=== PATIENT | female | born 1960 | race Caucasian/White ===

== ENCOUNTER 2018-02-04 10:43 | Emergency (ER) | payer SELFPAY ==
[2018-02-04] MEDS ORDERED: IPRATROPIUM/ALBUTEROL 0.5-2.5 MG/3 ML AMPUL NEB ONE (10:48)
[2018-02-04] MEDS ORDERED: NORMAL SALINE 1000 ML 1,000 ML IV ONE ×2 (11:00→14:04)
[2018-02-04 11:01] LABS: ABSOLUTE BASOPHILS # (AUTO) 0.1 10^3/uL (0.0-0.2); ABSOLUTE LYMPHOCYTES (AUTO) 1.4 10^3/uL (0.5-4.7); ABSOLUTE MONOCYTES (AUTO) 0.4 10^3/uL (0.1-1.4); ABSOLUTE NEUT (AUTO) 5.5 10^3/uL (1.7-8.2); BASOPHILS % (AUTO) 0.7 % (0-2); EOSINOPHILS % (AUTO) 0.1 % (0-6); HEMATOCRIT 45.2 % (36.0-47.0); HEMOGLOBIN 14.9 g/dL (12.0-15.5); LYMPHOCYTES % (AUTO) 18.9 % (13-45); MEAN CORPUSCULAR HEMOGLOBIN 29.2 pg (27.0-33.4); MEAN CORPUSCULAR VOLUME 89 fl (80-97); PLATELET COUNT 178 10^3/uL (150-450); RED CELL DISTRIBUTION WIDTH 15.5 % (11.5-14.0); SEGMENTED NEUTROPHILS % (AUTO) 74.3 % (42-78); TOTAL CELLS COUNTED % (AUTO) 100 %; WHITE BLOOD COUNT 7.4 10^3/uL (4.0-10.5)
[2018-02-04] MEDS ORDERED: BUMETANIDE INJ/PF 1 MG/4 ML SDV IV ONE (11:01)
--- NOTE | 2018-02-04 11:03 | ER Document Report ---
ED General - General Stated Complaint: TROUBLE BREATHING Time Seen by Provider: 02/04/18 11:00 Mode of Arrival: Medic Information source: Patient, Emergency Med Personnel, Outside Facility Records Notes: 57-year-old female with congestive heart failure, chronic pain presents via EMS from home in respiratory distress. Per EMS they were called by the patient's after she became unresponsive. Upon their arrival patient was cyanotic , hypoxic with an oxygen saturation of 72%. She was placed on BiPAP and oxygen saturation improved. Upon arrival patient is alert, awake and is able to answer questions although she does not off. She states that she has had chills , sweats for the last few days. She reports a nonproductive intermittent cough. He she does state that she was recently admitted to [facility] for heart failure. - Related Data Allergies/Adverse Reactions: No Known Allergies Allergy (Verified 02/04/18 13:12) Past Medical History - General Information source: Patient, Emergency Med Personnel, Outside Facility Records Cannot obtain history due to: Altered mental status - Social History Smoking Status: Current Every Day Smoker Cigarette use (# per day): Yes - 20 Frequency of alcohol use: None Drug Abuse: Prescription drugs Lives with: Spouse/Significant other Family History: Reviewed & Not Pertinent Patient has suicidal ideation: No Patient has homicidal ideation: No - Past Medical History Cardiac Medical History: Reports: Hx Congestive Heart Failure Physical Exam - Vital signs Vitals: Resp 31 H 02/04/18 10:46 - Notes Notes: PHYSICAL EXAMINATION: GENERAL: Ill-appearing, moderate distress HEAD: Atraumatic, normocephalic. EYES: Pupils equal round and reactive to light, extraocular movements intact, conjunctiva are normal. ENT: Nares patent, oropharynx clear without exudates. Dry mucous membranes. NECK: Normal range of motion, supple without lymphadenopathy LUNGS: Breath sounds clear to auscultation bilaterally and equal. Tachypnea, accessory muscle use, cyanosis. HEART: Tachycardic, regular rhythm, no murmurs. ABDOMEN: Soft, nontender, nondistended abdomen. No guarding, no rebound. No masses appreciated. Female : deferred Musculoskeletal: Normal range of motion, no pitting or edema. No cyanosis. NEUROLOGICAL: Cranial nerves grossly intact. Normal speech, Normal sensory, motor exams. AO x3 PSYCH: Somnolent but arousable. SKIN: Warm, Dry, normal turgor, no rashes or lesions noted. Course - Re-evaluation Re-evalutation: Laboratory 02/04/18 02/04/18 02/04/18 10:36 10:36 10:36 WBC 7.4 RBC 5.10 Hgb 14.9 Hct 45.2 MCV 89 MCH 29.2 MCHC 33.0 RDW 15.5 H Plt Count 178 Seg Neutrophils % 74.3 Lymphocytes % 18.9 Monocytes % 6.0 Eosinophils % 0.1 Basophils % 0.7 Absolute Neutrophils 5.5 Absolute Lymphocytes 1.4 Absolute Monocytes 0.4 Absolute Eosinophils 0.0 Absolute Basophils 0.1 PT 17.7 H INR 1.38 Carbonic Acid HCO3/H2CO3 Ratio ABG pH ABG pCO2 ABG pO2 ABG HCO3 ABG Total CO2 ABG O2 Saturation ABG Base Excess VBG pH VBG pCO2 VBG HCO3 VBG Base Excess FiO2 Sodium 141.4 Potassium 6.4 H* Chloride 99 Carbon Dioxide 30 Anion Gap 12 BUN 19 Creatinine 1.07 Est GFR ( Amer) > 60 Est GFR (Non-Af Amer) 53 L Glucose 137 H POC Glucose Lactic Acid Calcium 9.5 Total Bilirubin 2.9 H Direct Bilirubin 1.0 H Neonat Total Bilirubin Not Reportable Neonat Direct Bilirubin Not Reportable Neonat Indirect Bili Not Reportable AST 119 H ALT 83 H Alkaline Phosphatase 64 Creatine Kinase 74 CK-MB (CK-2) Troponin I NT-Pro-B Natriuret Pep Total Protein 7.4 Albumin 4.2 Urine Color Urine Appearance Urine pH Ur Specific Rock Urine Protein Urine Glucose (UA) Urine Ketones Urine Blood Urine Nitrite Urine Bilirubin Urine Urobilinogen Ur Leukocyte Esterase Urine WBC (Auto) Urine RBC (Auto) U Hyaline Cast (Auto) Squamous Epi Cells Auto Urine Mucus (Auto) Urine Ascorbic Acid Urine Opiates Screen Urine Methadone Screen Ur Barbiturates Screen Ur Phencyclidine Scrn Ur Amphetamines Screen U Benzodiazepines Scrn Urine Cocaine Screen U Marijuana (THC) Screen 02/04/18 02/04/18 02/04/18 10:36 10:36 11:16 WBC RBC Hgb Hct MCV MCH MCHC RDW Plt Count Seg Neutrophils % Lymphocytes % Monocytes % Eosinophils % Basophils % Absolute Neutrophils Absolute Lymphocytes Absolute Monocytes Absolute Eosinophils Absolute Basophils PT INR Carbonic Acid HCO3/H2CO3 Ratio ABG pH ABG pCO2 ABG pO2 ABG HCO3 ABG Total CO2 ABG O2 Saturation ABG Base Excess VBG pH VBG pCO2 VBG HCO3 VBG Base Excess FiO2 Sodium Potassium Chloride Carbon Dioxide Anion Gap BUN Creatinine Est GFR ( Amer) Est GFR (Non-Af Amer) Glucose POC Glucose Lactic Acid Calcium Total Bilirubin Direct Bilirubin Neonat Total Bilirubin Neonat Direct Bilirubin Neonat Indirect Bili AST ALT Alkaline Phosphatase Creatine Kinase CK-MB (CK-2) 2.12 Troponin I 0.066 NT-Pro-B Natriuret Pep 55760 H Total Protein Albumin Urine Color LOAF Urine Appearance SLIGHTLY-CLOUDY Urine pH 5.0 Ur Specific Rock 1.023 Urine Protein 100 H Urine Glucose (UA) NEGATIVE Urine Ketones NEGATIVE Urine Blood NEGATIVE Urine Nitrite NEGATIVE Urine Bilirubin NEGATIVE Urine Urobilinogen 4.0 H Ur Leukocyte Esterase NEGATIVE Urine WBC (Auto) 2 Urine RBC (Auto) 0 U Hyaline Cast (Auto) 20 Squamous Epi Cells Auto 2 Urine Mucus (Auto) MOD Urine Ascorbic Acid NEGATIVE Urine Opiates Screen Urine Methadone Screen Ur Barbiturates Screen Ur Phencyclidine Scrn Ur Amphetamines Screen U Benzodiazepines Scrn Urine Cocaine Screen U Marijuana (THC) Screen 02/04/18 02/04/18 02/04/18 11:16 11:45 12:09 WBC RBC Hgb Hct MCV MCH MCHC RDW Plt Count Seg Neutrophils % Lymphocytes % Monocytes % Eosinophils % Basophils % Absolute Neutrophils Absolute Lymphocytes Absolute Monocytes Absolute Eosinophils Absolute Basophils PT INR Carbonic Acid Cancelled HCO3/H2CO3 Ratio Cancelled ABG pH Cancelled ABG pCO2 Cancelled ABG pO2 Cancelled ABG HCO3 Cancelled ABG Total CO2 Cancelled ABG O2 Saturation Cancelled ABG Base Excess Cancelled VBG pH VBG pCO2 VBG HCO3 VBG Base Excess FiO2 Cancelled Sodium Potassium Chloride Carbon Dioxide Anion Gap BUN Creatinine Est GFR ( Amer) Est GFR (Non-Af Amer) Glucose POC Glucose Lactic Acid 3.2 H Calcium Total Bilirubin Direct Bilirubin Neonat Total Bilirubin Neonat Direct Bilirubin Neonat Indirect Bili AST ALT Alkaline Phosphatase Creatine Kinase CK-MB (CK-2) Troponin I NT-Pro-B Natriuret Pep Total Protein Albumin Urine Color Urine Appearance Urine pH Ur Specific Rock Urine Protein Urine Glucose (UA) Urine Ketones Urine Blood Urine Nitrite Urine Bilirubin Urine Urobilinogen Ur Leukocyte Esterase Urine WBC (Auto) Urine RBC (Auto) U Hyaline Cast (Auto) Squamous Epi Cells Auto Urine Mucus (Auto) Urine Ascorbic Acid Urine Opiates Screen NEGATIVE Urine Methadone Screen NEGATIVE Ur Barbiturates Screen NEGATIVE Ur Phencyclidine Scrn NEGATIVE Ur Amphetamines Screen U Benzodiazepines Scrn NEGATIVE Urine Cocaine Screen NEGATIVE U Marijuana (THC) Screen NEGATIVE 02/04/18 02/04/18 12:09 12:22 WBC RBC Hgb Hct MCV MCH MCHC RDW Plt Count Seg Neutrophils % Lymphocytes % Monocytes % Eosinophils % Basophils % Absolute Neutrophils Absolute Lymphocytes Absolute Monocytes Absolute Eosinophils Absolute Basophils PT INR Carbonic Acid HCO3/H2CO3 Ratio ABG pH ABG pCO2 ABG pO2 ABG HCO3 ABG Total CO2 ABG O2 Saturation ABG Base Excess VBG pH 7.25 L VBG pCO2 60.6 VBG HCO3 26.2 VBG Base Excess -2.2 FiO2 Sodium Potassium Chloride Carbon Dioxide Anion Gap BUN Creatinine Est GFR ( Amer) Est GFR (Non-Af Amer) Glucose POC Glucose 127 H Lactic Acid Calcium Total Bilirubin Direct Bilirubin Neonat Total Bilirubin Neonat Direct Bilirubin Neonat Indirect Bili AST ALT Alkaline Phosphatase Creatine Kinase CK-MB (CK-2) Troponin I NT-Pro-B Natriuret Pep Total Protein Albumin Urine Color Urine Appearance Urine pH Ur Specific Rock Urine Protein Urine Glucose (UA) Urine Ketones Urine Blood Urine Nitrite Urine Bilirubin Urine Urobilinogen Ur Leukocyte Esterase Urine WBC (Auto) Urine RBC (Auto) U Hyaline Cast (Auto) Squamous Epi Cells Auto Urine Mucus (Auto) Urine Ascorbic Acid Urine Opiates Screen Urine Methadone Screen Ur Barbiturates Screen Ur Phencyclidine Scrn Ur Amphetamines Screen U Benzodiazepines Scrn Urine Cocaine Screen U Marijuana (THC) Screen Chest X-Ray 02/04/18 10:44 IMPRESSION: HEART ENLARGED WITHOUT FAILURE. NO OTHER SIGNIFICANT RADIOGRAPHIC FINDING IN THE CHEST. Temp Pulse Resp BP Pulse Ox 22 H 123/103 H 100 02/04/18 13:01 02/04/18 13:01 02/04/18 13:01 02/04/18 11:02 Patient presented via EMS in respiratory distress on CPAP. EMS reported that they found the patient with an oxygen saturation of 68%. Bedside ultrasound performed and showed no pericardial effusion but did show poor contractility suspect EF less than 20. Patient reports recent admission to [facility]. 02/04/18 11:21 [facility] contacted for information regarding patient' s recent admission. They state that she was admitted for acute decompensated heart failure in November. Patient will be stabilized and transfer will be initiated. 02/04/18 11:[address] Ross metal bonding assembler on-call regarding concern for cardiogenic shock. Requesting advice regarding pressors. Dobutamine versus nor epi. He advises initiating nor epi first and then adding dobutamine if needed. 02/04/18 11:34 Patient becoming combative, agitated. Potassium found to be 6.4 and QTC is 537. Calcium, insulin, dextrose, albuterol were administered. 02/04/18 11:45 Patient's narcotic report reviewed and patient was receiving Percocet 10 mg 3 times daily and Ultram consistently. Questionable whether patient had an overdose which caused her to become hypoxic. 02/04/18 12:13 Transfer to [facility] initiated. 02/04/18 12:18 Unable to obtain consistent accurate BP but patient is alert awake and mentating normally, patient does become drowsy but she is easily aroused. Lovenox administered. Nor epi initiated. 02/04/18 13:00 Patient reevaluated. Vital signs stable. Received 2 phone calls from the transfer center at [facility]. The first time the case loader operator apologized and told me the clerical specialist said this was cardiac and once cardiology involved. I was set up to just talk to Dr. Winkler when I was told that the patient belongs to [facility]. Still awaiting callback. 02/04/18 13:[address] Ureña clerical specialist at [facility] who recommends intubation prior to transfer. Patient was intubated without complication. Brief episode of hypotension. Chest x-ray pending. 02/04/18 14:05 Chest x-ray reviewed. Tube appears to be in appropriate position. Flight crew has arrived. Vital signs stable. Patient's has been notified and is aware that patient will be transferred to [facility]. He states that he is on his way there now. 02/04/18 15:14 57-year-old female with history of congestive heart failure with an EF of 15-20 % per [facility] medical records, methamphetamine abuse , prescription drug abuse, prolonged QTC, hypertension presented from home in respiratory distress. Patient found to be in cardiogenic shock. Medical records arrived and were reviewed after the patient was already transferred to [facility] and it appears that the patient is supposed to be wearing a life vest. She did admit to never following up with cardiology after her November 2017 admission to [facility]. - Vital Signs Vital signs: Temp Pulse Resp BP Pulse Ox 22 H 123/103 H 94 02/04/18 13:01 02/04/18 13:01 02/04/18 13:50 - Laboratory Result Diagrams: 02/04/18 10:36 02/04/18 10:36 Laboratory results interpreted by me: 02/04/18 02/04/18 02/04/18 10:36 10:36 10:36 RDW 15.5 H PT 17.7 H VBG pH Potassium 6.4 H* Est GFR (Non-Af Amer) 53 L Glucose 137 H POC Glucose Lactic Acid Total Bilirubin 2.9 H Direct Bilirubin 1.0 H AST 119 H ALT 83 H NT-Pro-B Natriuret Pep Urine Protein Urine Urobilinogen 02/04/18 02/04/18 02/04/18 10:36 11:16 12:09 RDW PT VBG pH Potassium Est GFR (Non-Af Amer) Glucose POC Glucose Lactic Acid 3.2 H Total Bilirubin Direct Bilirubin AST ALT NT-Pro-B Natriuret Pep 32477 H Urine Protein 100 H Urine Urobilinogen 4.0 H 02/04/18 02/04/18 12:09 12:22 RDW PT VBG pH 7.25 L Potassium Est GFR (Non-Af Amer) Glucose POC Glucose 127 H Lactic Acid Total Bilirubin Direct Bilirubin AST ALT NT-Pro-B Natriuret Pep Urine Protein Urine Urobilinogen - Diagnostic Test Radiology reviewed: Image reviewed, Reports reviewed - EKG Interpretation by Me EKG shows normal: Sinus rhythm Rate: Tachycardia When compared to previous EKG there are: Previous EKG unavailable - Prolonged QTC. Procedures - Intubation Orotracheal Time of Intubation: 13:53 Airway evaluation: Large tongue Mallampati Classification: Class 2 Medications: Etomidate, Ketamine Intubation method: Orotracheal Blade type: Renetta Blade size: 3 Equipment used: Glidescope ETT size: 7.5 ETT secured at: Teeth ETT secured at (cm): 23 Breath Sounds after Intubation: Equal End tidal CO2 confirmed: Yes Critical Care Note - Critical Care Note Total time excluding time spent on procedures (mins): 120 - Minutes of critical care time spent in direct contact evaluating and reevaluating the patient, treating symptoms, reviewing labs and studies and speaking with family and consultants excluding any procedures Discharge - Discharge Clinical Impression: Cardiogenic shock, Elevated brain natriuretic peptide (BNP) level, Hyperkalemia , Prolonged QTC, Tobacco abuse, Methamphetamine abuse, Lactic acidosis Respiratory failure Qualifiers: Chronicity: acute Respiratory failure complication: hypoxia Qualified Code(s): J96.01 - Acute respiratory failure with hypoxia Congestive heart failure Qualifiers: Heart failure type: unspecified Heart failure chronicity: acute on chronic Qualified Code(s): I50.9 - Heart failure, unspecified Hypotension Qualifiers: Hypotension type: unspecified hypotension type Qualified Code(s): I95.9 - Hypotension, unspecified Condition: Critical Disposition: [facility]
--- NOTE | 2018-02-04 11:04 | RADIOLOGY REPORT (SQ) ---
EXAM DESCRIPTION: CHEST SINGLE VIEW COMPLETED DATE/TIME: 02/04/2018 10:56 am REASON FOR STUDY: bed 9 sepsis protocol COMPARISON: None. NUMBER OF VIEWS: One view. TECHNIQUE: Single frontal radiographic view of the chest acquired. LIMITATIONS: None. FINDINGS: LUNGS AND PLEURA: No opacities, masses or pneumothorax. No pleural effusion. MEDIASTINUM AND HILAR STRUCTURES: No masses. Contour normal. HEART AND VASCULAR STRUCTURES: Heart enlarged without failure. Normal vasculature. BONES: No acute findings. HARDWARE: None in the chest. OTHER: No other significant finding. IMPRESSION: HEART ENLARGED WITHOUT FAILURE. NO OTHER SIGNIFICANT RADIOGRAPHIC FINDING IN THE CHEST. TECHNICAL DOCUMENTATION: JOB ID: [id number] [employer]- All Rights Reserved Reading location - IP/workstation name: [email or web address]
[2018-02-04 11:13] LABS: ALANINE AMINOTRANSFERASE 83 U/L (9-52); ALBUMIN 4.2 g/dL (3.5-5.0); ALKALINE PHOSPHATASE 64 U/L (38-126); ANION GAP 12 (5-19); ASPARTATE AMINO TRANSFERASE 119 U/L (14-36); BILIRUBIN,TOTAL 2.9 mg/dL (0.2-1.3); BLOOD UREA NITROGEN 19 mg/dL (7-20); CALCIUM 9.5 mg/dL (8.4-10.2); CARBON DIOXIDE 30 mmol/L (22-30); CHLORIDE 99 mmol/L (98-107); CREATINE KINASE 74 U/L (30-135); GLUCOSE 137 mg/dL (75-110); SODIUM 141.4 mmol/L (137-145); TOTAL PROTEIN 7.4 g/dL (6.3-8.2)
[2018-02-04 11:20] LABS: POTASSIUM 6.4 mmol/L (3.6-5.0)
[2018-02-04 11:23] LABS: INTERNATIONAL RATION (INR) 1.38; PROTHROMBIN TIME 17.7 SEC (11.4-15.4)
[2018-02-04] MEDS ORDERED: DEXTROSE 50%-WATER 25 GM/50 ML DISP.SYRIN IV ONE (11:26)
[2018-02-04] MEDS ORDERED: CALCIUM GLUCONATE 1000 MG/10 ML INJ IV ONE (11:26)
[2018-02-04] MEDS ORDERED: INSULIN REG, HUMAN 100 UNIT/ML 3 ML VIAL (PYX) IV ONE (11:26)
[2018-02-04] MEDS ORDERED: ALBUTEROL SULFATE 0.083% NEB 2.5 MG/3 ML AMPUL NEB ONE ×2 (11:27→12:28)
[2018-02-04 11:33] LABS: APPEARANCE,URINE SLIGHTLY-CLOUDY; BILIRUBIN,URINE NEGATIVE (NEGATIVE); COLOR,URINE AMBER; GLUCOSE, URINE NEGATIVE (NEGATIVE); KETONES,URINE NEGATIVE (NEGATIVE); LEUKOCYTE ESTERASE,URINE NEGATIVE (NEGATIVE); NITRITE,URINE NEGATIVE (NEGATIVE); PROTEIN,URINE 100 mg/dL (NEGATIVE); URINE SPECIFIC GRAVITY 1.023
[2018-02-04] MEDS ORDERED: FENTANYL CITRATE INJ/PF 100 MCG/2 ML AMPUL ONE ×2 (11:55→13:50)
[2018-02-04 11:56] LABS: CREATINE KINASE MB 2.12 ng/mL (<4.55)
[2018-02-04] MEDS ORDERED: FENTANYL CITRATE INJ/PF 100 MCG/2 ML AMPUL IV ONE ×3 (11:57→13:51)
[2018-02-04] MEDS ORDERED: VANCOMYCIN HCL INJ 1000 MG VIAL IV ONE (12:01)
[2018-02-04] MEDS ORDERED: PIPERACILLIN/TAZOBACTAM 3.375 GM VIAL IV ONE (12:01)
[2018-02-04 12:04] LABS: TROPONIN I 0.066 ng/mL
[2018-02-04] MEDS ORDERED: ENOXAPARIN SODIUM INJ 80 MG/0.8 ML DISP.SYRIN SUBCUT ONE (12:09)
[2018-02-04 12:23] LABS: VENOUS BLOOD BASE EXCESS -2.2 mmol/L; VENOUS BLOOD HCO3 26.2 mmol/L (20-32); VENOUS BLOOD PCO2 60.6 mmHg (35-63); VENOUS BLOOD PH 7.25 (7.30-7.42)
[2018-02-04] MEDS: NOREPINEPHRINE BITARTRATE INJ/PF 4 MG/4 ML SDV IV ONE ×2 (12:25→14:07)
[2018-02-04 12:26] LABS: URINE BARBITURATES SCREEN NEGATIVE; URINE BENZODIAZEPINES SCREEN NEGATIVE; URINE COCAINE SCREEN NEGATIVE; URINE MARIJUANA (THC) SCREEN NEGATIVE; URINE METHADONE SCREEN NEGATIVE; URINE PHENCYCLIDINE SCREEN NEGATIVE
[2018-02-04] MEDS ORDERED: DEXTROSE 5%-WATER 250 ML with NOREPINEPHRINE BITARTRATE 4 MG IV PRN ×2 (12:28)
[2018-02-04 13:04] VITALS: BP 123/103
[2018-02-04] MEDS ORDERED: KETAMINE HCL INJ 500 MG/10 ML VIAL ONE (13:19)
[2018-02-04] MEDS ORDERED: ETOMIDATE INJ/PF 20 MG/10 ML SDV IV ONE ×2 (13:35→13:48)
[2018-02-04] MEDS ORDERED: ROCURONIUM BROMIDE INJ 50 MG/5 ML VIAL IV ONE ×2 (14:01→14:36)
[2018-02-04] MEDS ORDERED: KETAMINE HCL INJ 500 MG/10 ML VIAL IV ONE (14:01)
--- NOTE | 2018-02-04 14:08 | RADIOLOGY REPORT (SQ) ---
EXAM DESCRIPTION: CHEST SINGLE VIEW COMPLETED DATE/TIME: 02/04/2018 1:57 pm REASON FOR STUDY: post inubation Sepsis COMPARISON: 02/04/2018, 1054 hours EXAM PARAMETERS: NUMBER OF VIEWS: One view. TECHNIQUE: Single frontal radiographic view of the chest acquired. RADIATION DOSE: NA LIMITATIONS: Portable film, defibrillator pads over the chest FINDINGS: LUNGS AND PLEURA: Mild diffuse pulmonary vascular prominence. No dense consolidation worr isome for pneumonia. No pleural effusion or pneumothorax MEDIASTINUM AND HILAR STRUCTURES: No masses. Contour normal. HEART AND VASCULAR STRUCTURES: Stable marked cardiomegaly BONES: No acute findings. HARDWARE: Endotracheal tube tip 2 cm above the maurisio. Nasogastric tube tip in the distal esophagus, side port in the mid esophagus. OTHER: No other significant finding. IMPRESSION: Endotracheal tube tip 2 cm above the maurisio. Nasogastric tube tip in the distal esophag us, could be advanced another 10 cm. Stable pulmonary vascular prominence and massive cardiomegaly TECHNICAL DOCUMENTATION: JOB ID: [id number] [employer]- All Rights Reserved Reading location - IP/workstation name: [email or web address]
--- NOTE | 2018-02-05 19:17 | EKG REPORT ---
SEVERITY:- ABNORMAL ECG - SINUS TACHYCARDIA LEFT AXIS DEVIATION BORDERLINE R WAVE PROGRESSION, ANTERIOR LEADS ABNORMAL T, CONSIDER ISCHEMIA, LATERAL LEADS PROLONGED QT INTERVAL : Confirmed by: Janeth Ross MD 05-Feb-2018 19:17:03
== END 2018-02-04 15:00 | disposition short-term general hospital (02) ==
LOC: ER 10:43
DX: J96.01 Acute respiratory failure with hypoxia (principal); I11.0 Hypertensive heart disease with heart failure; I50.9 Heart failure, unspecified; I45.81 Long QT syndrome; I95.9 Hypotension, unspecified; R57.0 Cardiogenic shock; E87.5 Hyperkalemia; F15.10 Other stimulant abuse, uncomplicated; E87.2 Acidosis; F17.210 Nicotine dependence, cigarettes, uncomplicated; R68.83 Chills (without fever); R61 Generalized hyperhidrosis; R05 Cough; R00.0 Tachycardia, unspecified; R40.0 Somnolence; G89.29 Other chronic pain; Z79.891 Long term (current) use of opiate analgesic
CPT/HCPCS: 93005; 94640 ×2; 99291; 99292; 96372; 51702; 96375; 96365; 96367; 36415; 87040; 87086; 82553; 82962; 82550; 85025; 85610; 80053; 81001; 84484; 80307; 82803; 83605; 83880; 71045; 94660 ×2; 93010; 31500; J3490 ×5; J0610; J3010; J1815; J7060; J7030; J3370; J1650; J2543

== ENCOUNTER 2019-05-28 11:15 | Emergency (ER) | payer MEDICAID ==
[~2019-05-28 11:15] MED LIST: NORMAL SALINE 1000 ML 1,000 ML IV ONE
[2019-05-28] MEDS ORDERED: CEFTRIAXONE INJ 1000 MG VIAL IV ONE (11:27)
--- NOTE | 2019-05-28 11:34 | ER Document Report ---
ED General - General Chief Complaint: Breathing Difficulty Stated Complaint: DIFFICULTY BREATHING Time Seen by Provider: 05/28/19 11:27 Mode of Arrival: Medic Information source: Patient Cannot obtain history due to: Unstable vital signs Notes: 58-year-old female arrives by EMS [facility] with history of 3-day history of fever chills green-black productive cough rhinorrhea cephalgia thirst but appetite is unchanged. Patient denies any diarrhea denies any constipation. has similar symptoms and her son began to have this initially in the first of the week. Her son now is asymptomatic. Patient was given amiodarone upon arrival 150 because of heart rate 165. She was initially given 20 mg of Cardizem by [facility] which dropped her pressure to 90 systolic. By time of arrival patient's blood pressure at increased to 127. Patient reports she takes metoprolol 12.5 1/2 tablet daily. She also is on Lasix and omeprazole. Patient is able to speak 1-3 word sentences but is requesting ice because of dry mouth. She also is using neck and upper chest muscles to breathe. She reports she feels very poorly because of the URI symptoms. from 1 year prior [facility] 57-year-old female with congestive heart failure, chronic pain presents via EMS from home in respiratory distress. Per EMS they were called by the patient's after she became unresponsive. Upon their arrival patient was cyanotic, hypoxic with an oxygen saturation of 72%. She was placed on BiPAP and oxygen saturation improved. Upon arrival patient is alert, awake and is able to answer questions although she does not off. She states that she has had chills, sweats for the last few days. She reports a nonproductive intermittent cough. He she does state that she was recently admitted to [facility] for heart failure. - Related Data TRAVEL OUTSIDE OF THE [place] IN LAST 30 DAYS: No - HPI Onset: This morning - With severe tachypnea and shortness of breath. Onset/Duration: Sudden, Persistent Quality of pain: Achy, Fullness Severity: Moderate Pain Level: 2 Associated symptoms: Body/muscle aches, Productive cough, Fever, Headache, Hurts to breath, Shortness of breath Exacerbated by: Coughing, Deep breathing Relieved by: Denies Similar symptoms previously: Yes Recently seen / treated by doctor: Yes - Patient seen at [facility] for [place] 3 weeks ago according to - Related Data Allergies/Adverse Reactions: No Known Allergies Allergy (Verified 02/04/18 13:12) Past Medical History - General Information source: Patient, Emergency Med Personnel - Social History Smoking Status: Former Smoker - Patient quit smoking 6 months ago Cigarette use (# per day): No Chew tobacco use (# tins/day): No Smoking Education Provided: No Frequency of alcohol use: None Drug Abuse: None Lives with: Family Family History: Reviewed & Not Pertinent Patient has suicidal ideation: No Patient has homicidal ideation: No - Past Medical History Cardiac Medical History: Reports: Hx Congestive Heart Failure, Hx Hypertension Pulmonary Medical History: Reports: Hx COPD Renal/ Medical History: Denies: Hx Peritoneal Dialysis Review of Systems - Review of Systems Constitutional: See HPI, Chills, Fever, Malaise, Weakness, Recent illness EENT: See HPI, Nose congestion, Sinus pressure Cardiovascular: See HPI, Heart racing, Dizziness, Lightheaded Respiratory: See HPI, Cough, Hurts to breathe, Short of breath, Sputum, Wheezing Gastrointestinal: No symptoms reported Genitourinary: No symptoms reported Female Genitourinary: No symptoms reported Musculoskeletal: No symptoms reported Skin: No symptoms reported Hematologic/Lymphatic: No symptoms reported Neurological/Psychological: No symptoms reported Physical Exam - Vital signs Vitals: Temp Pulse Ox 100.1 F 84 L 05/28/19 11:15 05/28/19 11:15 Interpretation: Hypotensive, Hypoxic, Tachypneic, Febrile - General General appearance: Alert - HEENT Head: Normocephalic Eyes: Normal Conjunctiva: Normal Cornea: Normal Extraocular movements intact: Yes Eyelashes: Normal Pupils: PERRL Nasal: Normal Mouth/Lips: Normal Mucous membranes: Dry Pharynx: Normal Neck: Normal - Respiratory Respiratory status: Respiratory distress Chest status: Nontender Breath sounds: Productive cough, Wheezing Chest palpation: Normal - Cardiovascular Rhythm: Tachycardia Heart sounds: Normal auscultation Murmur: No Friction rub: No Shannan's crunch: No - Abdominal Inspection: Normal Distension: No distension Bowel sounds: Normal Tenderness: Nontender Organomegaly: No organomegaly - Back Back: Normal - Extremities General upper extremity: Normal inspection General lower extremity: Normal inspection - Neurological Neuro grossly intact: Yes Cognition: Normal Orientation: AAOx4 Makayla Coma Scale Eye Opening: Spontaneous Makayla Coma Scale Verbal: Oriented Makayla Coma Scale Motor: Obeys Commands [place] Coma Scale Total: 15 Speech: Normal Cranial nerves: Normal Cerebellar coordination: Normal Motor strength normal: LUE, RUE, LLE, RLE - Psychological Associated symptoms: Anxious - Skin Skin Temperature: Warm Skin Moisture: Dry Course - Vital Signs Vital signs: Temp Pulse Resp BP Pulse Ox 100.1 F 30 H 123/89 H 91 L 05/28/19 11:15 05/28/19 11:18 05/28/19 11:18 05/28/19 11:24 - Laboratory Result Diagrams: 05/28/19 11:28 05/28/19 11:28 Laboratory results interpreted by me: 05/28/19 05/28/19 05/28/19 11:28 11:28 12:20 RDW 16.4 H PT ABG pH ABG pO2 ABG HCO3 ABG Total CO2 ABG O2 Saturation Sodium 135.4 L Glucose 118 H Lactic Acid Total Bilirubin 1.5 H AST 95 H ALT 49 H Urine Protein 100 H Urine Blood SMALL H Urine Urobilinogen 2.0 H Ur Leukocyte Esterase LARGE H 05/28/19 05/28/19 05/28/19 13:35 13:35 14:07 RDW PT 19.7 H ABG pH 7.24 L ABG pO2 449.9 H ABG HCO3 17.7 L ABG Total CO2 19.0 L ABG O2 Saturation 99.8 H Sodium Glucose Lactic Acid 7.1 H Total Bilirubin AST ALT Urine Protein Urine Blood Urine Urobilinogen Ur Leukocyte Esterase - Diagnostic Test Radiology reviewed: Reports reviewed Radiology results interpreted by me: 05/28/19 14:10 I did evaluate this woman's chest x-ray initially as well as Dr. Salas. At around 1250 patient became more dyspneic and diaphoretic and short of breath tripoding and was about to receive Bumex 1 mg IV when patient was interviewed by Dr. Kwame Salas. At that point patient reports she was just in the hospital for [place]. I later spoke with and he advises he was hospitalized 3 weeks ago and stayed there for 1 week because of [place]. Patient was intubated and also right EJ was placed and right art line from her right axillary area was placed. I discussed this case with Dr. Tommie andrews at [place] because of cardiogenic shock and possible viral cardiomyopathy. Patient was sent for PCR respiratory screen as well as coronavirus - EKG Interpretation by Me EKG shows normal: Sinus rhythm Rate: Tachycardia Rhythm: Other - Sinus tachycardia left anterior fascicular block LVH Procedures - Central Line Right Internal jugular Time completed: 13:43 Consent obtained: No Central line pre-insertion: Sterile PPE donned, Chloraprep applied Central line lumen type: Triple Anesthetic type: 1% Lidocaine mL's of anesthesia: 5 Ultrasound guided: Yes CM at insertion site: 15 Line secured with sutures: Yes Central line post-insertion: Blood return from lumens Number of attempts: 1 Complications: No Notes: 05/28/19 13:44 This procedure was done by Dr. Kwame Salas - Intubation Orotracheal Time of Intubation: 13:10 Medications: Succinylcholine, Fentanyl, Ketamine Blade type: Other - scope Equipment used: Glidescope ETT size: 7.5 Breath Sounds after Intubation: Equal Critical Care Note - Critical Care Note Total time excluding time spent on procedures (mins): 90 Comments: This case was discussed with hospitalist Dr. Rodas and he advises the patient has history of CHF. Chest x-ray with no acute findings compared with last visit but I suspect pneumonia or CHF on this visit as well. I spoke to Dr Tommie Andrews compliance review officer at [place] and he advises a CoV19 cardiogenic shock bed. He will make arrangements for transfer also spoke with GM at the transfer center there at [place]. Dr. Christianson discussed this case with Dr. andrews around 1515 and Edis called me around 1535 to advise they will hold their transfer. I did discuss this case with Dr. Good and also with Dr. Oviedo at [facility] and he accepts the patient. I discussed this case with Wanda the patient's nurse and she saw her mother in the room prior to helicopter transfer; I advised Wanda that she should communicate this to her father and brother that the [facility] ICU may be isolated from coronavirus and "advises all family members to stay away unless life-threat ening." Discharge - Discharge Clinical Impression: Tachycardia, Elevated troponin, Acute respiratory failure with hypoxemia, Cardiogenic shock URI (upper respiratory infection) Qualifiers: URI type: unspecified viral URI Qualified Code(s): J06.9 - Acute upper respiratory infection, unspecified Pneumonia Qualifiers: Pneumonia type: due to unspecified organism Laterality: right Lung location: upper lobe of lung Qualified Code(s): J18.9 - Pneumonia, unspecified organism UTI (urinary tract infection) Qualifiers: Urinary tract infection type: acute cystitis Hematuria presence: without hematuria Qualified Code(s): N30.00 - Acute cystitis without hematuria Condition: Poor Disposition: [facility] Additional Instructions: Patient was sent to [facility] by helicopter per Dr. Florentino Sanders acceptance; BLANCA Duncan was on nursing staff for transfer. Patient's heart rate had decreased after 100 J of cardioversion
[2019-05-28] MEDS ORDERED: ACETAMINOPHEN 650 MG SUPP.RECT PR ONE (11:36)
[2019-05-28] MEDS ORDERED: CEFTRIAXONE 1 GM/D5W RTU 1 GM/50 ML RTUPB IV ONE ×2 (11:38→11:40)
[2019-05-28 11:42] LABS: ABSOLUTE BASOPHILS # (AUTO) 0.1 10^3/uL (0.0-0.2); ABSOLUTE LYMPHOCYTES (AUTO) 1.3 10^3/uL (0.5-4.7); ABSOLUTE MONOCYTES (AUTO) 0.7 10^3/uL (0.1-1.4); ABSOLUTE NEUT (AUTO) 5.1 10^3/uL (1.7-8.2); EOSINOPHILS % (AUTO) 0.1 % (0-6); HEMOGLOBIN 13.4 g/dL (12.0-15.5); LYMPHOCYTES % (AUTO) 18.4 % (13-45); MEAN CORPUSCULAR HEMOGLOBIN 28.6 pg (27.0-33.4); MEAN CORPUSCULAR HGB CONC 33.4 g/dL (32.0-36.0); MEAN CORPUSCULAR VOLUME 86 fl (80-97); MONOCYTES % (AUTO) 9.4 % (3-13); PLATELET COUNT 187 10^3/uL (150-450); RED BLOOD COUNT 4.68 10^6/uL (3.72-5.28); RED CELL DISTRIBUTION WIDTH 16.4 % (11.5-14.0); SEGMENTED NEUTROPHILS % (AUTO) 71.1 % (42-78); TOTAL CELLS COUNTED % (AUTO) 100 %; VENOUS BLOOD BASE EXCESS -2.3 mmol/L; VENOUS BLOOD HCO3 22.7 mmol/L (20-32); VENOUS BLOOD PCO2 40.1 mmHg (35-63); VENOUS BLOOD PH 7.37 (7.30-7.42); WHITE BLOOD COUNT 7.2 10^3/uL (4.0-10.5)
[2019-05-28] MEDS ORDERED: AZITHROMYCIN INJ 500 MG VIAL IV ONE (11:49)
[2019-05-28] MEDS ORDERED: AMIODARONE HCL 150 MG in DEXTROSE 5%-WATER 100 ML IV ONE ×2 (11:49→15:57)
[2019-05-28 11:59] LABS: A TYPE INFLUENZA AG NEGATIVE (NEGATIVE); B INFLUENZA AG NEGATIVE (NEGATIVE)
[2019-05-28 12:02] LABS: ALBUMIN 3.7 g/dL (3.5-5.0); ALKALINE PHOSPHATASE 52 U/L (38-126); ANION GAP 8 (5-19); ASPARTATE AMINO TRANSFERASE 95 U/L (14-36); BILIRUBIN,TOTAL 1.5 mg/dL (0.2-1.3); BLOOD UREA NITROGEN 12 mg/dL (7-20); CALCIUM 8.6 mg/dL (8.4-10.2); CARBON DIOXIDE 25 mmol/L (22-30); CHLORIDE 102 mmol/L (98-107); GLUCOSE 118 mg/dL (75-110); POTASSIUM 3.9 mmol/L (3.6-5.0); TOTAL PROTEIN 6.7 g/dL (6.3-8.2)
--- NOTE | 2019-05-28 12:17 | RADIOLOGY REPORT (SQ) ---
EXAM DESCRIPTION: CHEST SINGLE VIEW COMPLETED DATE/TIME: 05/28/2019 11:52 am REASON FOR STUDY: cough and short of breath COMPARISON: Chest radiographs 02/04/2018. EXAM PARAMETERS: NUMBER OF VIEWS: One view. TECHNIQUE: Single frontal radiographic view of the chest acquired. RADIATION DOSE: NA LIMITATIONS: None. FINDINGS: LUNGS AND PLEURA: No opacities, masses or pneumothorax. No pleural effusion. MEDIASTINUM AND HILAR STRUCTURES: Unchanged cardiomediastinal contours. HEART AND VASCULAR STRUCTURES: Cardiomegaly. BONES: No acute findings. HARDWARE: Transcutaneous pacing pad. OTHER: Right axillary surgical clips. IMPRESSION: No acute pulmonary findings. Unchanged cardiomegaly. TECHNICAL DOCUMENTATION: JOB ID: [id number] 2010 [employer]- All Rights Reserved Reading location - IP/workstation name: [email or web address]
[2019-05-28] MEDS ORDERED: ASPIRIN 81 MG TABLET, CHEWABLE PO ONE (12:35)
[2019-05-28] MEDS ORDERED: BUMETANIDE INJ/PF 1 MG/4 ML SDV IV ONE (12:42)
[2019-05-28] MEDS ORDERED: KETAMINE HCL INJ 500 MG/10 ML VIAL IV ONE (12:52)
[2019-05-28] MEDS ORDERED: SUCCINYLCHOLINE CHLORIDE INJ 200 MG/10 ML VIAL IV ONE (12:53)
[2019-05-28 12:55] LABS: APPEARANCE,URINE CLOUDY; BILIRUBIN,URINE NEGATIVE (NEGATIVE); COLOR,URINE AMBER; GLUCOSE, URINE NEGATIVE (NEGATIVE); KETONES,URINE NEGATIVE (NEGATIVE); LEUKOCYTE ESTERASE,URINE LARGE (NEGATIVE); NITRITE,URINE NEGATIVE (NEGATIVE); PROTEIN,URINE 100 mg/dL (NEGATIVE); URINE SPECIFIC GRAVITY 1.023
[2019-05-28] MEDS ORDERED: NOREPINEPHRINE BITARTRATE INJ/PF 4 MG/4 ML SDV IV ONE ×3 (12:55→19:13)
[2019-05-28] MEDS ORDERED: DEXTROSE 5%-WATER 250 ML with NOREPINEPHRINE BITARTRATE 4 MG IV PRN ×4 (12:55→19:06)
[2019-05-28] MEDS ORDERED: FENTANYL CITRATE INJ/PF 100 MCG/2 ML AMPUL IV ONE ×2 (12:59→14:06)
[2019-05-28] MEDS ORDERED: FENTANYL CITRATE INJ/PF 100 MCG/2 ML AMPUL ONE ×2 (12:59→14:06)
[2019-05-28] MEDS: DEXTROSE 5%-WATER 250 ML with VASOPRESSIN 100 UNIT IV PRN ×4 (13:00→14:35)
[2019-05-28] MEDS ORDERED: MIDAZOLAM 2 MG/2 ML INJ ONE (13:04)
[2019-05-28] MEDS ORDERED: MILRINONE LACTATE/D5W 20 MG/100 ML RTUINJ IV PRN (13:21)
[2019-05-28] MEDS ORDERED: EPINEPHRINE INJ 30 MG/30 ML VIAL IV ONE (13:26)
[2019-05-28] MEDS ORDERED: EPINEPHRINE INJ/PF 1 MG/1 ML AMPULE ONE ×2 (13:29→13:35)
[2019-05-28] MEDS ORDERED: DEXTROSE 5%-WATER 250 ML with EPINEPHRINE/PF 1 MG IV PRN ×2 (13:33)
[2019-05-28] MEDS ORDERED: EPINEPHRINE INJ 1 MG/10 ML DISP.SYRIN ONE (13:35)
--- NOTE | 2019-05-28 13:39 | RADIOLOGY REPORT (SQ) ---
EXAM DESCRIPTION: CHEST SINGLE VIEW COMPLETED DATE/TIME: 05/28/2019 1:28 pm REASON FOR STUDY: INTUBATION COMPARISON: 05/28/2019 earlier. FINDINGS: One-view chest AP portable upright. Appropriately positioned endotracheal tube. Nasogastric tube down with tip barely within the stomach. Side hole lies in the distal esophagus. R ecommend advancing this further. Unchanged cardiomegaly. No pneumothorax. External limiting artifact. TECHNICAL DOCUMENTATION: JOB ID: [id number] Reading location - IP/workstation name: [email or web address]
[2019-05-28] MEDS ORDERED: ESMOLOL HCL/SOD CL 2,500 MG/250 ML RTUINJ IV ONE (14:08)
[2019-05-28] MEDS ORDERED: ESMOLOL HCL/SOD CL 2,500 MG/250 ML RTUINJ IV PRN (14:14)
[2019-05-28] MEDS ORDERED: DEXMEDETOMIDINE IN 0.9 % NACL 400 MCG/100 ML RTUPB IV PRN (14:18)
--- NOTE | 2019-05-28 14:30 | RADIOLOGY REPORT (SQ) ---
EXAM DESCRIPTION: CHEST SINGLE VIEW COMPLETED DATE/TIME: 05/28/2019 2:20 pm REASON FOR STUDY: central line COMPARISON: Chest radiographs earlier performed on 05/27/2018 EXAM PARAMETERS: NUMBER OF VIEWS: One view. TECHNIQUE: Single frontal radiographic view of the chest acquired. RADIATION DOSE: NA LIMITATIONS: None. FINDINGS: LUNGS AND PLEURA: No opacities, masses or pneumothorax. No pleural effusion. MEDIASTINUM AND HILAR STRUCTURES: Unchanged cardiomediastinal contours. HEART AND VASCULAR STRUCTURES: Unchanged cardiomegaly. BONES: No acute findings. HARDWARE: Interval placement of right internal jugular central venous catheter with the tip projectin g over the region of the lower SVC. Endotracheal tube tip terminating 2 cm above the maurisio. Unchan ged positioning of an enteric tube with the side port projecting over the distal esophagus. OTHER: Right axillary surgical clips. IMPRESSION: Lines and tubes as above. Again, recommend advancement of an enteric tube by at least 4 cm. No acute pulmonary findings. TECHNICAL DOCUMENTATION: JOB ID: [id number] 2010 [employer]- All Rights Reserved Reading location - IP/workstation name: [email or web address]
[2019-05-28 14:32] LABS: ARTERIAL BLOOD BASE EXCESS -9.3 mmol/L; ARTERIAL BLOOD H2CO3 1.28 mmol/L (1.05-1.35); ARTERIAL BLOOD HCO3 17.7 mmol/L (20-24); ARTERIAL BLOOD O2 SATURATION 99.8 % (94-98); ARTERIAL BLOOD PCO2 42.5 mmHg (35-45); ARTERIAL BLOOD PH 7.24 (7.35-7.45); ARTERIAL BLOOD PO2 449.9 mmHg (80-100)
[2019-05-28 14:33] LABS: ARTERIAL BLOOD FIO2 100%
[2019-05-28 14:40] LABS: C-REACTIVE PROTEIN 7.8 mg/L (<10.0)
[2019-05-28] MEDS ORDERED: SODIUM BICARBONATE 8.4% INJ 50 MEQ/50 ML DISP.SYRIN IV ONE ×2 (14:56→15:45)
[2019-05-28] MEDS ORDERED: OSELTAMIVIR PHOSPHATE 75 MG CAPSULE PO ONE (15:00)
[2019-05-28] MEDS ORDERED: VASOPRESSIN INJ 20 UNIT/1 ML VIAL ONE ×2 (15:15→15:21)
[2019-05-28 15:19] LABS: FERRITIN 63.4 ng/mL (11.1-264.0)
[2019-05-28] MEDS ORDERED: DIGOXIN INJ 0.5 MG/2 ML AMPULE ONE (15:31)
[2019-05-28] MEDS ORDERED: DIGOXIN INJ 0.5 MG/2 ML AMPULE IV ONE (15:45)
[2019-05-28] MEDS ORDERED: ADENOSINE INJ/PF 6 MG/2 ML SDV IV ONE ×2 (15:53→15:55)
[2019-05-28] MEDS ORDERED: DEXTROSE 5%-WATER 500 ML with AMIODARONE HCL 900 MG IV PRN ×2 (15:57)
[2019-05-28] MEDS ORDERED: HEPARIN SODIUM,PORCINE/D5W 25,000 UNIT/250 ML RTUINJ IV PRN (15:58)
[2019-05-28 16:13] LABS: INTERNATIONAL RATION (INR) 1.65; PROTHROMBIN TIME 19.7 SEC (11.4-15.4)
[2019-05-28 16:14] LABS: PARTIAL THROMBOPLASTIN TIME 24.8 SEC (23.5-35.8)
--- NOTE | 2019-05-28 16:46 | PDOC CONSULTATION ---
Consultation Consult Date: 05/28/19 Attending physician:: KEVIN OSWALD JR Provider Consulted: VELVET CHRISTIANSON Consult reason:: Acute respiratory failure with hypotension History of Present Illness Patient complains of: Dyspnea History of Present Illness: DINO FERNANDO is a 58 year old female with whom I could not obtain a significant amount of information secondary to her extreme status. I was asked by the emergency room personnel to evaluate this 58-year-old female who had developed tachycardia not responsive to Cardizem. She was extremely short of breath, had discoloration of her skin including mottling of her legs. The short amount of time of evaluation she endorsed that she had just been hospitalized 3 weeks ago for an [place]. She is also been in the presence of people with upper respiratory illness. She has a history of lung disease which is intermittently oxygen dependent. She has felt some degree of sore throat. She is unable to endorse any myalgias. Her cough has been dry. Patient status was such that we urgently transition to intubation. The drip is already been started because of the hypotension and we gave her ketamine for the induction as well as succinylcholine. Examination after showed persistent hypotension and she was started on multiple vasopressor therapy. Critical care ultrasound and echo was done which showed significant dilation of the vena cava, biventricular dilation with an EF at approximately 10 to 12%. Appear to be smoke and shadowing in the IVC. I did not appreciate a clot in transit however aging was difficult secondary to patient's anatomy. She was started on milrinone and epinephrine however the epinephrine caused significant tachycardia. We transitioned her to esmolol for looser tropic effect, treated with fentanyl for possible sedation related tachycardia and started Precedex and in the hope to control heart rate. Her blood pressures did improve. Central line and right axillary arterial line were also placed. Given her situation of what appears cardiogenic shock and possible respiratory viral pneumonitis we recommended that she be sent to a center that could provide ventricular support. ECG showed SINUS TACHYCARDIA LEFT ANTERIOR FASCICULAR BLOCK; PROBABLE LVH WITH SECONDARY REPOL ABNRM PROLONGED QT INTERVAL HR 146; FL 192; QRSD 104;QTc 530 Given the situation a mixed venous gas Lactic acid number one 1.6 pH 7.24, PO2 >400 mmhg Urine is positive for white blood cells Chest x-ray showed small interstitial pattern with an enlarged heart She has heart rate of 150 with irregular pattern. Appears to be atrial fibrillation and flutter. Bolus digoxin given No response to Digoxin. Required synchronized cardioversion which converted to sinus rhythm. Heparin started as well. Cardioverted when Bp decreased on pressors. Past Medical History Cardiac Medical History: Reports: Congestive Heart Failure, Myocardial Infarction - 3 weeks ago at [facility]. Questionable known EF low but not known, Hypertension Pulmonary Medical History: Reports: Chronic Obstructive Pulmonary Disease (COPD) Social History Information Source: Patient, [facility] Records Lives with: Family Smoking Status: Former Smoker - Patient quit smoking 6 months ago Last Time Smoked: 6 weeks ago Hx Recreational Drug Use: Yes Family History Family History: Reviewed & Not Pertinent Parental Family History Reviewed: Yes Children Family History Reviewed: NA Sibling(s) Family History Reviewed.: NA Medication/Allergy Allergies/Adverse Reactions: No Known Allergies Allergy (Verified 02/04/18 13:12) Review of Systems ROS unobtainable: Due to mental status Constitutional: PRESENT: as per HPI Nose, Mouth, and Throat: PRESENT: headache(s), sore throat Cardiovascular: PRESENT: dyspnea on exertion. ABSENT: chest pain, edema Respiratory: PRESENT: cough, dyspnea. ABSENT: hemoptysis, sputum Gastrointestinal: ABSENT: abdominal pain Integumentary: PRESENT: diaphoresis Physical Exam Vital Signs: Temp Pulse Resp BP Pulse Ox 100.1 F 30 H 123/89 H 91 L 05/28/19 11:15 05/28/19 11:18 05/28/19 11:18 05/28/19 11:24 Intake & Output 05/27/19 05/28/19 05/29/19 06:59 06:59 06:59 Weight 88.6 kg Physical Exam: Older appearing critically ill toxic 58-year-old white female with cyanotic discoloration of her face, confusion General appearance: PRESENT: disheveled, obese, severe distress. ABSENT: cooperative Head exam: PRESENT: atraumatic, normocephalic Eye exam: PRESENT: conjunctiva pink, EOMI, PERRLA. ABSENT: conjunctival injection, conjunctiva pale, nystagmus Teeth exam: PRESENT: poor dentation, other - significant dental loss prior to intubation Throat exam: ABSENT: post pharyngeal erythema, tonsillar erythema, tonsillar exudate Neck exam: PRESENT: JVD. ABSENT: carotid bruit, lymphadenopathy, meningismus, thyromegaly, tracheal deviation Respiratory exam: PRESENT: accessory muscle use, crackles - Mild, tachypnea. ABSENT: unlabored, wheezes Cardiovascular exam: PRESENT: tachycardia Additional comments: Bedside critical care basic echo shows biventricular dilatation with septal dyskinesis and akinesis, apical-inferior and apical lateral akinesis. IVC dilated with smoke like appearance possible clot Pulses: ABSENT: normal dorsalis pedis pul Vascular exam: PRESENT: pallor. ABSENT: normal capillary refill GI/Abdominal exam: PRESENT: hypoactive bowel sounds, soft. ABSENT: ascites, distended, guarding, mass, normal bowel sounds, organolmegaly, rebound, tenderness Rectal exam: PRESENT: deferred Extremities exam: PRESENT: pedal edema Neurological exam: PRESENT: altered, oriented to person, oriented to place. ABSENT: motor sensory deficit Psychiatric exam: PRESENT: agitated, anxious Focused psych exam: PRESENT: pressured speech, psychomotor agitation, restlessness Skin exam: PRESENT: cyanosis Results Laboratory Results: 05/28/19 11:28 05/28/19 11:28 05/28/19 05/28/19 05/28/19 11:28 11:28 11:28 WBC 7.2 RBC 4.68 Hgb 13.4 Hct 40.0 MCV 86 MCH 28.6 MCHC 33.4 RDW 16.4 H Plt Count 187 Seg Neutrophils % 71.1 Carbonic Acid HCO3/H2CO3 Ratio ABG pH ABG pCO2 ABG pO2 ABG HCO3 ABG O2 Saturation ABG Base Excess VBG pH 7.37 VBG pCO2 40.1 VBG HCO3 22.7 VBG Base Excess -2.3 FiO2 Sodium 135.4 L Potassium 3.9 Chloride 102 Carbon Dioxide 25 Anion Gap 8 BUN 12 Creatinine 0.67 Est GFR ( Amer) > 60 Glucose 118 H Lactic Acid Calcium 8.6 Total Bilirubin 1.5 H AST 95 H Alkaline Phosphatase 52 Total Protein 6.7 Albumin 3.7 Urine Color Urine Appearance Urine pH Ur Specific [place] Urine Protein Urine Glucose (UA) Urine Ketones Urine Blood Urine Nitrite Ur Leukocyte Esterase Urine WBC (Auto) Urine RBC (Auto) 05/28/19 05/28/19 05/28/19 11:28 12:20 13:35 WBC RBC Hgb Hct MCV MCH MCHC RDW Plt Count Seg Neutrophils % Carbonic Acid Cancelled HCO3/H2CO3 Ratio Cancelled ABG pH Cancelled ABG pCO2 Cancelled ABG pO2 Cancelled ABG HCO3 Cancelled ABG O2 Saturation Cancelled ABG Base Excess Cancelled VBG pH VBG pCO2 VBG HCO3 VBG Base Excess FiO2 Cancelled Sodium Potassium Chloride Carbon Dioxide Anion Gap BUN Creatinine Est GFR ( Amer) Glucose Lactic Acid 1.6 Calcium Total Bilirubin AST Alkaline Phosphatase Total Protein Albumin Urine Color OLAF Urine Appearance CLOUDY Urine pH 5.0 Ur Specific [place] 1.023 Urine Protein 100 H Urine Glucose (UA) NEGATIVE Urine Ketones NEGATIVE Urine Blood SMALL H Urine Nitrite NEGATIVE Ur Leukocyte Esterase LARGE H Urine WBC (Auto) 26 Urine RBC (Auto) 6 05/28/19 05/28/19 11:28 11:28 Creatine Kinase 71 Troponin I 0.260 EKG Comments: See HPI Impressions: Chest X-Ray 05/28/19 11:24 IMPRESSION: No acute pulmonary findings. Unchanged cardiomegaly. Status: Image reviewed by me Assessment & Plan - Diagnosis (1) Cardiogenic shock Is this a current diagnosis for this admission?: Yes (2) Acute and chronic respiratory failure with hypoxia Is this a current diagnosis for this admission?: Yes (3) Metabolic encephalopathy Is this a current diagnosis for this admission?: Yes (4) Cardiomyopathy Qualifiers: Cardiomyopathy type: ischemic Qualified Code(s): I25.5 - Ischemic cardiomyopathy (5) UTI (urinary tract infection) Qualifiers: Urinary tract infection type: acute cystitis (6) UTI (urinary tract infection) Qualifiers: Urinary tract infection type: acute cystitis Hematuria presence: without hematuria Qualified Code(s): N30.00 - Acute cystitis without hematuria Is this a current diagnosis for this admission?: Yes - Time Time Spent: Greater than 70 Minutes Total Critical Time (Minutes): 120 Medications reviewed and adjusted accordingly: Yes Anticipated discharge: Tertiary Hospital Within: Other - today - Inpatient Certification Based on my medical assessment, after consideration of the patient's comorbidities, presenting symptoms, or acuity I expect that the services needed warrant INPATIENT care.: Yes I certify that my determination is in accordance with my understanding of Medicare's requirements for reasonable and necessary INPATIENT services [42 CFR 412.3e].: Yes Medical Necessity: Failure to Improve With Outpatient Therapy, Need For Continuous Telemetry Monitoring, Need for Neurological Checks, Need for Surgery - Plan Summary Plan Summary: Patient has profound cardiogenic shock and will need transfer to an institution which has left ventricular assist support. We originally felt that this patient had a primary respiratory process however her chest x-ray is essentially unremarkable except for some mild vascularization . Given her robust PO2 this does not appear to be a viral pneumonitis. Lengthy discussions were carried out with [facility] in their intensive care. We had originally attempted to transfer the patient however given the fact that she was tested for CO VID19 there is reticence and profound reluctance to transport her by air. We do not feel that this is the probable diagnosis. Discussed with the cardiology team from [facility] and she has been accepted and will be transferred there posthaste.
--- NOTE | 2019-05-28 16:48 | Operative Report ---
Bedside Procedure - History of Present Illness History of Present Illness: DINO FERNANDO is a 58 year old female with whom I could not obtain a significant amount of information secondary to her extreme status. I was asked by the emergency room personnel to evaluate this 58-year-old female who had developed tachycardia not responsive to Cardizem. She was extremely short of breath, had discoloration of her skin including mottling of her legs. The short amount of time of evaluation she endorsed that she had just been hospitalized 3 weeks ago for an [place]. She is also been in the presence of people with upper respiratory illness. She has a history of lung disease which is intermittently oxygen dependent. She has felt some degree of sore throat. She is unable to endorse any myalgias. Her cough has been dry. Patient status was such that we urgently transition to intubation. The drip is already been started because of the hypotension and we gave her ketamine for the induction as well as succinylcholine. Examination after showed persistent hypotension and she was started on multiple vasopressor therapy. Critical care ultrasound and echo was done which showed significant dilation of the vena cava, biventricular dilation with an EF at approximately 10 to 12%. Appear to be smoke and shadowing in the IVC. I did not appreciate a clot in transit however aging was difficult secondary to patient's anatomy. She was started on milrinone and epinephrine however the epinephrine caused significant tachycardia. We transitioned her to esmolol for looser tropic effect, treated with fentanyl for possible sedation related tachycardia and started Precedex and in the hope to control heart rate. Her blood pressures did improve. Central line and right axillary arterial line were also placed. Given her situation of what appears cardiogenic shock and possible respiratory viral pneumonitis we recommended that she be sent to a center that could provide ventricular support. ECG showed SINUS TACHYCARDIA LEFT ANTERIOR FASCICULAR BLOCK; PROBABLE LVH WITH SECONDARY REPOL ABNRM PROLONGED QT INTERVAL HR 146; CT 192; QRSD 104;QTc 530 Given the situation a mixed venous gas Lactic acid number one 1.6 pH 7.24, PO2 >400 mmhg Urine is positive for white blood cells Chest x-ray showed small interstitial pattern with an enlarged heart She has heart rate of 150 with irregular pattern. Appears to be atrial fibrillation and flutter. Bolus digoxin given No response to Digoxin. Required synchronized cardioversion which converted to sinus rhythm. Heparin started as well. Cardioverted when Bp decreased on pressors. Indication for Procedure: Shock, with respiratory failure Date: 05/28/19 Provider: VELVET CHRISTIANSON - Central Line Right Internal jugular Time completed: 13:30 Consent obtained: Yes Central line pre-insertion: Sterile PPE donned, Chloraprep applied, Sterile drapes applied Central line lumen type: Triple Ultrasound guided: Yes CM at insertion site: 15 Line secured with sutures: Yes Central line post-insertion: Blood return from lumens, Biopatch applied, Sutured, Sterile dressing applied, Position confirmed w/ CXR, Other - No pneumothorax on US Number of attempts: 1 Complications: No
--- NOTE | 2019-05-28 16:53 | Operative Report ---
Bedside Procedure - History of Present Illness History of Present Illness: DINO FERNANDO is a 58 year old female with whom I could not obtain a significant amount of information secondary to her extreme status. I was asked by the emergency room personnel to evaluate this 58-year-old female who had developed tachycardia not responsive to Cardizem. She was extremely short of breath, had discoloration of her skin including mottling of her legs. The short amount of time of evaluation she endorsed that she had just been hospitalized 3 weeks ago for an [place]. She is also been in the presence of people with upper respiratory illness. She has a history of lung disease which is intermittently oxygen dependent. She has felt some degree of sore throat. She is unable to endorse any myalgias. Her cough has been dry. Patient status was such that we urgently transition to intubation. The drip is already been started because of the hypotension and we gave her ketamine for the induction as well as succinylcholine. Examination after showed persistent hypotension and she was started on multiple vasopressor therapy. Critical care ultrasound and echo was done which showed significant dilation of the vena cava, biventricular dilation with an EF at approximately 10 to 12%. Appear to be smoke and shadowing in the IVC. I did not appreciate a clot in transit however aging was difficult secondary to patient's anatomy. She was started on milrinone and epinephrine however the epinephrine caused significant tachycardia. We transitioned her to esmolol for looser tropic effect, treated with fentanyl for possible sedation related tachycardia and started Precedex and in the hope to control heart rate. Her blood pressures did improve. Central line and right axillary arterial line were also placed. Given her situation of what appears cardiogenic shock and possible respiratory viral pneumonitis we recommended that she be sent to a center that could provide ventricular support. ECG showed SINUS TACHYCARDIA LEFT ANTERIOR FASCICULAR BLOCK; PROBABLE LVH WITH SECONDARY REPOL ABNRM PROLONGED QT INTERVAL HR 146; [place] 192; QRSD 104;QTc 530 Given the situation a mixed venous gas Lactic acid number one 1.6 pH 7.24, PO2 >400 mmhg Urine is positive for white blood cells Chest x-ray showed small interstitial pattern with an enlarged heart She has heart rate of 150 with irregular pattern. Appears to be atrial fibrillation and flutter. Bolus digoxin given No response to Digoxin. Required synchronized cardioversion which converted to sinus rhythm. Heparin started as well. Cardioverted when Bp decreased on pressors. Indication for Procedure: shock with respiratory failure Date: 05/28/19 Provider: VELVET CHRISTIANSON - Additional Procedures Arterial Line Time performed: 13:50 Notes: Procedure: Placement of right axillary arterial catheter Procedure diagnosis: Cardiogenic shock Procedure diagnosis same Proceduralist: DO Josue [facility] Complications: None EBL: 5-8 cc She was appropriately identified and required arterial catheter secondary to found cardiogenic shock and inability to obtain adequate blood pressure. He had no palpable radial pulses but did have axillary and femoral pulses. We did not want to interrogate the right femoral or left femoral on the chance that she may need an Impella type ventricular device. The right axilla was prepped and draped in sterile fashion with chlorhexidine and allowed to dry Ultrasound guidance the right axillary artery was found and the Seldinger needle was placed into the artery on first attempt. Pulsatile but poorly pulsatile blood flow was noted A wire was then inserted using typical Seldinger technique and the needle was removed. Next a 18-gauge long catheter was placed over wire without difficulty. After this the wire was removed and slowly pulsatile blood flow was noted and allowed to occur to clear debris. Catheter was affixed to a syringe and sutured in place and then transitioned to pressure transducer. The application of chlorhexidine occurred the transducer and pressure lines were zeroed. Patient tolerated the procedure well Apparent complications Procedure excludes critical care time
--- NOTE | 2019-05-28 16:58 | Operative Report ---
Bedside Procedure - History of Present Illness History of Present Illness: DINO FERNANDO is a 58 year old female with whom I could not obtain a significant amount of information secondary to her extreme status. I was asked by the emergency room personnel to evaluate this 58-year-old female who had developed tachycardia not responsive to Cardizem. She was extremely short of breath, had discoloration of her skin including mottling of her legs. The short amount of time of evaluation she endorsed that she had just been hospitalized 3 weeks ago for an [place]. She is also been in the presence of people with upper respiratory illness. She has a history of lung disease which is intermittently oxygen dependent. She has felt some degree of sore throat. She is unable to endorse any myalgias. Her cough has been dry. Patient status was such that we urgently transition to intubation. The drip is already been started because of the hypotension and we gave her ketamine for the induction as well as succinylcholine. Examination after showed persistent hypotension and she was started on multiple vasopressor therapy. Critical care ultrasound and echo was done which showed significant dilation of the vena cava, biventricular dilation with an EF at approximately 10 to 12%. Appear to be smoke and shadowing in the IVC. I did not appreciate a clot in transit however aging was difficult secondary to patient's anatomy. She was started on milrinone and epinephrine however the epinephrine caused significant tachycardia. We transitioned her to esmolol for looser tropic effect, treated with fentanyl for possible sedation related tachycardia and started Precedex and in the hope to control heart rate. Her blood pressures did improve. Central line and right axillary arterial line were also placed. Given her situation of what appears cardiogenic shock and possible respiratory viral pneumonitis we recommended that she be sent to a center that could provide ventricular support. Procedure: Emergent intubation Preprocedure diagnosis: Hypoxic respiratory failure Procedure diagnosis: Same Proceduralist: Josue [facility] [place] Anesthesia: Modified rapid sequence with ketamine, succinylcholine followed by Cesar. Complications: None EBL: None Patient was appropriate and a 5-second ongoing critical care in the emergency room. She was in acute respiratory distress. She had become confused and our concern was a possible viral pneumonitis. Oxygen saturations were unable to be improved with facemask and given her respiratory status and her appearance we transition to quickly intubate her. An attempt to preoxygenated her was difficult secondary to her confused state and her ongoing hemodynamic issues. He was given 100 mcg of fentanyl followed by 100 mg of ketamine as of hypotension with Levophed drip being started during the intubation. This was followed by succinylcholine. We achieved stable neurologic status and successfully intubated her with a glide scope and a 7-1/2 ET tube. The ET tube was adjusted at one point because it appeared that the balloon had herniated out of the trachea slightly but this was quickly recognized and remedied. There was good bilateral breath sounds, there were no gastric sounds and chest x-ray confirmed tracheal intubation with tip approximately 3 cm above the maurisio She had agreed 1 view with glide scope. There were no complications. Procedure excludes critical care time Indication for Procedure: Hypoxic respiratory failure with cardiogenic shock Date: 05/28/19 Provider: VELVET CHRISTIANSON
[2019-05-28] MEDS ORDERED: HEPARIN SOD (PORCINE) 1,000 UNIT/ML 10 ML VIAL IV PRN (18:58)
[2019-05-28] MEDS ORDERED: MIDAZOLAM 2 MG/2 ML INJ IV ONE (19:05)
[2019-05-28 20:46] VITALS: BP 135/75
--- NOTE | 2019-05-30 00:35 | EKG REPORT ---
SEVERITY:- ABNORMAL ECG - SINUS TACHYCARDIA VS PAT WITH 2:1 CONDUCTION, REC REPEAT EKG LEFT ANTERIOR FASCICULAR BLOCK PROBABLE LVH WITH SECONDARY REPOL ABNRM PROLONGED QT INTERVAL VPC : Confirmed by: Dominick Keenan 30-May-2019 00:35:40
--- NOTE | 2019-05-30 00:37 | EKG REPORT ---
SEVERITY:- ABNORMAL ECG - SINUS TACHYCARDIA VS PAT WITH 2:1 CONDUCTION, REPEAT EKG AFTER SLOWING HR PAIRED VENTRICULAR PREMATURE COMPLEXES ABERRANT COMPLEX FIRST DEGREE AV BLOCK LEFT AXIS DEVIATION LVH WITH SECONDARY REPOLARIZATION ABNORMALITY PROLONGED QT INTERVAL : Confirmed by: Dominick Keenan 30-May-2019 00:36:43
--- NOTE | 2019-05-30 08:23 | EKG REPORT ---
SEVERITY:- ABNORMAL ECG - ATRIAL FIBRILLATION RUN OF VENTRICULAR PREMATURE COMPLEXES LVH WITH IVCD, LAD AND SECONDARY REPOL ABNRM : Confirmed by: Dominick Keenan 30-May-2019 08:22:36
--- NOTE | 2019-05-30 08:24 | EKG REPORT ---
SEVERITY:- ABNORMAL ECG - SVT MULTIFORM VENTRICULAR PREMATURE COMPLEXES LVH WITH IVCD, LAD AND SECONDARY REPOL ABNRM : Confirmed by: Dominick Keenan 30-May-2019 08:23:37
--- NOTE | 2019-05-30 08:25 | EKG REPORT ---
SEVERITY:- ABNORMAL ECG - SINUS TACHYCARDIA VS SVT VENTRICULAR PREMATURE COMPLEX LEFT ANTERIOR FASCICULAR BLOCK LVH WITH SECONDARY REPOLARIZATION ABNORMALITY PROLONGED QT INTERVAL : Confirmed by: Dominick Keenan 30-May-2019 08:24:16
== END 2019-05-28 17:04 | disposition short-term general hospital (02) ==
LOC: ER 11:15
PROC: 05HM33Z Insertion of Infusion Device into Right Internal Jugular Vein, Percutaneous Approach (ICD-10-PCS; principal; 2019-05-28)
PROC: 0BH17EZ Insertion of Endotracheal Airway into Trachea, Via Natural or Artificial Opening (ICD-10-PCS; 2019-05-28)
DX: J96.01 Acute respiratory failure with hypoxia (principal); R57.0 Cardiogenic shock; J18.9 Pneumonia, unspecified organism; J06.9 Acute upper respiratory infection, unspecified; N30.00 Acute cystitis without hematuria; R00.0 Tachycardia, unspecified; R05 Cough; J34.89 Other specified disorders of nose and nasal sinuses; R51 Headache; R68.2 Dry mouth, unspecified; M79.10 Myalgia, unspecified site; R50.9 Fever, unspecified; R07.1 Chest pain on breathing; R53.81 Other malaise; R53.1 Weakness; R42 Dizziness and giddiness; Z79.899 Other long term (current) drug therapy; Z87.891 Personal history of nicotine dependence; I25.2 Old myocardial infarction; I11.0 Hypertensive heart disease with heart failure; I50.9 Heart failure, unspecified; J44.9 Chronic obstructive pulmonary disease, unspecified; Z20.828 Contact with and (suspected) exposure to other viral communicable diseases
CPT/HCPCS: 36556 ×2; 31500 ×2; 99291 ×2; 36620; 93005; 96376; 99292; 96361; 51702; 96375; 96365; 96366; 96367; 96368; 36415; 87040; 87070; 87880; 82803 ×2; 82550; 82728; 83605; 84443; 85025; 85610; 85730; 87635; 86140; 80053; 81001; 84484; 87804; 71045; 94660; 93010; J3490 ×7; J2250; J1160; J0171; J3010; J2260; J7060 ×2; J7030; J0456; J0696; J0282; 94002; J0330